=== PATIENT | male | born 1950 | race Caucasian/White ===

== ENCOUNTER 2017-08-17 07:28 | Emergency (ER) | payer MEDICARE, OTHER ==
[~2017-08-17] VITALS: Ht 195.6 cm; Wt 122.7 kg
[2017-08-17 07:32] VITALS: TEMP 98.1
[2017-08-17] MEDS ORDERED: SINGULAIR 110 MG/TAB PO (07:35)
[2017-08-17] MEDS ORDERED: MUCINEX DM 60 M1 TER PO (07:36)
[2017-08-17 08:15] LABS: BASO # 0.1 (0.0-0.2); BASO % 1.4 % (0.0-2.0); EOS # 0.4 (0.0-0.7); EOS % 7.7 % (0-4.0); GRAN # 2.7 (1.4-6.5); GRAN % 52.8 % (42.2-75.2); HEMATOCRIT 42.1 % (42.0-52.0); HEMOGLOBIN 13.9 g/dl (13.5-18.0); LYMPH # 1.5 (1.2-3.4); LYMPH % 30.4 % (20.0-51.0); MEAN CELL VOLUME 95 fl (80.0-100.0); MEAN CORPUSCULAR HEMOGLOBIN 31 pg (27.0-31.0); MEAN CORPUSCULAR HGB CONC 33 g/dl (33.0-37.0); MEAN PLATELET VOLUME 9.6 fl (7.4-10.4); MONO # 0.4 (0.1-0.6); MONO % 7.1 % (1.7-9.3); PLATELET COUNT 211 K/mm3 (130-400); RED BLOOD COUNT 4.45 M/mm3 (4.20-5.60); WHITE BLOOD COUNT 5.1 K/mm3 (4.8-10.8)
[2017-08-17 08:23] LABS: ADJUSTED CALCIUM 8.8 mg/dL (8.4-10.2); ALANINE AMINOTRANSFERASE 47 U/L (21-72); ALBUMIN 4.4 gm/dL (3.5-5.0); ALKALINE PHOSPHATASE 52 U/L (50-136); ANION GAP 11 mmol/L (7-16); BILIRUBIN,TOTAL 1.1 mg/dL (0.0-1.0); BLOOD UREA NITROGEN 11 mg/dL (9-20); CALCIUM 9.1 mg/dL (8.4-10.2); CARBON DIOXIDE 23 mmol/L (22-30); CHLORIDE 105 mmol/L (98-107); GLUCOSE 151 mg/dL (74-106); LIPASE 138 U/L (23-300); POTASSIUM 4.2 mmol/L (3.4-5.0); SODIUM 139 mmol/L (137-145); TOTAL PROTEIN 7.3 gm/dL (6.4-8.2)
[2017-08-17 08:42] LABS: TROPONIN-I < 0.012 ng/mL (0.000-0.034)
[2017-08-17] MEDS ORDERED: NORCO 325 MG-51 TAB PO (09:04)
[2017-08-17] MEDS ORDERED: VALIUM 2MG T2 MG/TAB PO (09:04)
[2017-08-17 09:33] VITALS: BP 119/72; PULSE 59
== END 2017-08-17 09:27 | disposition home or self-care (01) ==
LOC: COL.ER 07:28
PROVIDERS: Physician Assistant
DX: M79.622 Pain in left upper arm (principal); M62.838 Other muscle spasm; E11.9 Type 2 diabetes mellitus without complications; J45.909 Unspecified asthma, uncomplicated; Z85.46 Personal history of malignant neoplasm of prostate